=== PATIENT | male | born 1985 | race Caucasian/White ===

== ENCOUNTER 2021-05-31 04:15 | Emergency (ER) | payer OTHER ==
[2021-05-31 04:50] VITALS: BP 130/80; PULSE 67; TEMP 97.6; BMI 30.1
[2021-05-31 05:41] LABS: COCAINE, UR NEGATIVE (NEGATIVE); OPIATES, URI NEGATIVE (NEGATIVE); PHENCYCLIDINE,URINE NEGATIVE (NEGATIVE); URINE BARBITURATES NEGATIVE (NEGATIVE); URINE BENZODIAZEPINES NEGATIVE (NEGATIVE)
[2021-05-31 05:42] LABS: METHADONE, UR NEGATIVE (NEGATIVE)
[2021-05-31 06:02] LABS: URINE AMPHETAMINES NEGATIVE (NEGATIVE)
== END 2021-05-31 05:51 | disposition home or self-care (01) ==
LOC: JER 04:15
DX: F10.20 Alcohol dependence, uncomplicated (principal)
CPT/HCPCS: 80307; 99283-25

== ENCOUNTER 2021-05-31 06:24 | Inpatient (IN) | payer OTHER ==
[2021-05-31 06:48] VITALS: BMI 30.1
[2021-05-31] MEDS ORDERED: MAGNESIUM HYDROX 2400MG/30ML ORAL SUSPENSION 30 ML CUP PO PRN (09:08)
[2021-05-31] MEDS ORDERED: MENTHOL/PHENOL 1 EACH UD MM PRN (09:08)
[2021-05-31] MEDS ORDERED: ONDANSETRON *ODT* 4 MG TABLET SL PRN (09:08)
[2021-05-31] MEDS ORDERED: ACETAMINOPHEN 325 MG TABLET (FP) PO PRN ×2 (09:08)
[2021-05-31] MEDS ORDERED: MAGNESIUM CITRATE 300 ML BOTTLE PO PRN (09:08)
[2021-05-31] MEDS ORDERED: IBUPROFEN 400 MG TABLET (FP) PO PRN (09:08)
[2021-05-31] MEDS ORDERED: BISMUTH SUBSALICYLATE 262 MG/15 ML BTL PO PRN (09:08)
[2021-05-31] MEDS ORDERED: METHOCARBAMOL 500 MG TABLET PO PRN (09:08)
[2021-05-31] MEDS ORDERED: MAG HYDROX/AL HYDROX/SIMETH 30 ML UNIT-DOSE CUP PO PRN (09:08)
[2021-05-31] MEDS: hydrOXYzine PAMOATE 25 MG CAPSULE (FP) PO SCH ×4 (11:13→22:14)
[2021-05-31] MEDS: PRENATAL VITAMINS W/ FOLIC ACID TABLET (FP) PO SCH (11:13)
[2021-05-31 14:38] LABS: HEMATOCRIT 47.8 % (35.4-49); MCHC 33.4 g/dl (32.0-35.9); MEAN CELL VOLUME 86.9 fl (80-96); MEAN PLT VOLUME 8.9 fl (7.5-11.1); PLATELET COUNT 269 10^3/uL (134-434); RDW 13.2 % (11.9-15.9); WHITE BLOOD COUNT 5.2 K/mm3 (4.0-10.0)
[2021-05-31 14:54] LABS: CALCIUM 9.6 mg/dL (8.5-10.1)
[2021-05-31 14:55] LABS: ALBUMIN 4.2 g/dl (3.4-5.0); BLOOD UREA NITROGEN 10.9 mg/dL (7-18)
[2021-05-31 14:58] LABS: CREATININE 0.9 mg/dL (0.55-1.3)
[2021-05-31 15:00] LABS: BILIRUBIN,TOTAL 0.6 mg/dL (0.2-1); TOT PROT 7.9 g/dl (6.4-8.2)
[2021-05-31] MEDS ORDERED: THIAMINE HCL 100 MG TABLET (FP) PO SCH (22:00)
[2021-05-31] MEDS ORDERED: MELATONIN 5 MG TABLETS PO SCH (22:00)
[2021-06-01] MEDS: hydrOXYzine PAMOATE 25 MG CAPSULE (FP) PO SCH ×2 (06:23→10:58)
[2021-06-01 09:03] VITALS: BP 148/95; PULSE 79; TEMP 97.6
[2021-06-01] MEDS: PRENATAL VITAMINS W/ FOLIC ACID TABLET (FP) PO SCH (10:58)
== END 2021-06-01 13:25 | disposition home or self-care (01) | DRG 897 ==
LOC: YASAS 06:24 → Y6N 09:35
PROVIDERS: ADMIT Allergy & Immunology; ATTEND Allergy & Immunology
PROC: HZ2ZZZZ Detoxification Services for Substance Abuse Treatment (ICD-10-PCS; principal; 2021-05-31)
DX: F10.230 Alcohol dependence with withdrawal, uncomplicated (principal); F10.24 Alcohol dependence with alcohol-induced mood disorder; F32.A Depression, unspecified; F39 Unspecified mood [affective] disorder; Z59.01 Sheltered homelessness
CPT/HCPCS: 36415; 80053; 85027; 86780; 93005; 93010; C9803; U0003; U0005

== ENCOUNTER 2021-06-07 03:44 | Emergency (ER) | payer OTHER ==
[2021-06-07 04:01] VITALS: BMI 30.1
[2021-06-07 08:11] VITALS: BP 126/62; PULSE 74; TEMP 98.4
== END 2021-06-07 08:09 | disposition home or self-care (01) ==
LOC: JER 03:44
DX: F10.99 Alcohol use, unspecified with unspecified alcohol-induced disorder (principal); F39 Unspecified mood [affective] disorder
CPT/HCPCS: 99283-25

== ENCOUNTER 2021-06-07 08:53 | Inpatient (IN) | payer OTHER ==
[2021-06-07] MEDS ORDERED: MAG HYDROX/AL HYDROX/SIMETH 30 ML UNIT-DOSE CUP PO PRN (10:29)
[2021-06-07] MEDS ORDERED: P-EPHED 60MG/TRIPROLIDI 2.5MG TABLET PO PRN (10:29)
[2021-06-07] MEDS ORDERED: MAGNESIUM CITRATE 300 ML BOTTLE PO PRN (10:29)
[2021-06-07] MEDS ORDERED: IBUPROFEN 400 MG TABLET (FP) PO PRN (10:29)
[2021-06-07] MEDS ORDERED: MAGNESIUM HYDROX 2400MG/30ML ORAL SUSPENSION 30 ML CUP PO PRN (10:29)
[2021-06-07] MEDS ORDERED: ACETAMINOPHEN 325 MG TABLET (FP) PO PRN (10:29)
[2021-06-07] MEDS ORDERED: guaiFENesin 200 MG/10 ML 10 ML UNIT-DOSE CUPS PO PRN (10:29)
[2021-06-07] MEDS ORDERED: NICOTINE 10 MG CARTRIDGE (INHALER) IH PRN (10:29)
[2021-06-07 10:38] VITALS: BMI 31.0
[2021-06-07] MEDS: PRENATAL VITAMINS W/ FOLIC ACID TABLET (FP) PO SCH (12:26)
[2021-06-07] MEDS: NICOTINE 7 MG/24 HOURS TOPICAL PATCH TD SCH (12:26)
[2021-06-07] MEDS ORDERED: hydrOXYzine PAMOATE 25 MG CAPSULE (FP) PO SCH (14:00)
[2021-06-07] MEDS ORDERED: hydrOXYzine PAMOATE 25 MG CAPSULE (FP) PO PRN (15:56)
[2021-06-07 15:57] LABS: HEMATOCRIT 45.2 % (35.4-49); HEMOGLOBIN 15.1 GM/dL (11.7-16.9); MCH 28.7 pg (25.7-33.7); MCHC 33.5 g/dl (32.0-35.9); MEAN CELL VOLUME 85.6 fl (80-96); MEAN PLT VOLUME 8.7 fl (7.5-11.1); PLATELET COUNT 260 10^3/uL (134-434); RBC 5.28 M/mm3 (4.00-5.60); RDW 13.7 % (11.9-15.9); WHITE BLOOD COUNT 5.4 K/mm3 (4.0-10.0)
[2021-06-07 15:58] LABS: CALCIUM 9.3 mg/dL (8.5-10.1)
[2021-06-07 16:00] LABS: CREATININE 0.9 mg/dL (0.55-1.3)
[2021-06-07 16:02] LABS: BILIRUBIN,TOTAL 0.6 mg/dL (0.2-1); TOT PROT 7.2 g/dl (6.4-8.2)
[2021-06-07 16:05] LABS: BLOOD UREA NITROGEN 14.6 mg/dL (7-18)
[2021-06-07 16:24] LABS: SYPHILIS W/ RPR CONF NON-REACTIVE (NONREACTIVE)
[2021-06-07 17:00] LABS: HIV INTERPRETATION NEGATIVE (NEGATIVE)
[2021-06-07] MEDS: THIAMINE HCL 100 MG TABLET (FP) PO SCH (21:39)
[2021-06-07] MEDS: MELATONIN 5 MG TABLETS PO SCH (21:39)
[2021-06-08 08:51] LABS: URINE APPEARANCE CLEAR; URINE BILIRUBIN NEGATIVE (NEGATIVE); URINE COLOR YELLOW; URINE GLUCOSE (UA) NEGATIVE (NEGATIVE); URINE KETONE NEGATIVE (NEGATIVE); URINE LEUK ESTERASE NEGATIVE (NEGATIVE); URINE NITRITE NEGATIVE (NEGATIVE); URINE PROTEIN NEGATIVE (NEGATIVE); URINE UROBILINOGEN 0.2 mg/dL (0.2-1.0)
[2021-06-08] MEDS: PRENATAL VITAMINS W/ FOLIC ACID TABLET (FP) PO SCH (09:50)
[2021-06-08] MEDS: NICOTINE 7 MG/24 HOURS TOPICAL PATCH TD SCH (09:51)
[2021-06-08] MEDS ORDERED: PROMETHAZINE PO PRN (14:25)
[2021-06-08] MEDS ORDERED: PHENYLEPHRINE PO PRN (14:25)
[2021-06-08] MEDS ORDERED: [UNRECOGNIZED DRUG - OTHER] PO PRN (14:25)
[2021-06-08] MEDS ORDERED: PROMETHAZINE HCL ORAL SYRUP 6.25 MG/5 ML (BULK BOTTLE) PO PRN (16:15)
[2021-06-08] MEDS ORDERED: PT OWN MED DRAWER 7, Y5N ONE (19:14)
[2021-06-08] MEDS: MELATONIN 5 MG TABLETS PO SCH (21:14)
[2021-06-08] MEDS: THIAMINE HCL 100 MG TABLET (FP) PO SCH (21:15)
[2021-06-09] MEDS: PROMETHAZINE HCL ORAL SYRUP 6.25 MG/5 ML (BULK BOTTLE) PO PRN ×3 (01:25→20:28)
[2021-06-09] MEDS: PRENATAL VITAMINS W/ FOLIC ACID TABLET (FP) PO SCH (10:06)
[2021-06-09] MEDS: NICOTINE 7 MG/24 HOURS TOPICAL PATCH TD SCH (10:06)
[2021-06-09] MEDS ORDERED: PT OWN MED DRAWER 7, Y5N ONE ×2 (11:34→20:27)
[2021-06-09] MEDS: MELATONIN 5 MG TABLETS PO SCH (21:54)
[2021-06-09] MEDS: THIAMINE HCL 100 MG TABLET (FP) PO SCH (21:54)
[2021-06-10] MEDS: PRENATAL VITAMINS W/ FOLIC ACID TABLET (FP) PO SCH (09:25)
[2021-06-10] MEDS: NICOTINE 7 MG/24 HOURS TOPICAL PATCH TD SCH (09:26)
[2021-06-10] MEDS: PROMETHAZINE HCL ORAL SYRUP 6.25 MG/5 ML (BULK BOTTLE) PO PRN ×2 (09:26→19:04)
[2021-06-10] MEDS ORDERED: PT OWN MED DRAWER 7, Y5N ONE (19:03)
[2021-06-10] MEDS: THIAMINE HCL 100 MG TABLET (FP) PO SCH (21:39)
[2021-06-10] MEDS: MELATONIN 5 MG TABLETS PO SCH (21:39)
[2021-06-11] MEDS ORDERED: PT OWN MED DRAWER 7, Y5N ONE (04:08)
[2021-06-11] MEDS: PROMETHAZINE HCL ORAL SYRUP 6.25 MG/5 ML (BULK BOTTLE) PO PRN ×2 (04:09→12:58)
[2021-06-11] MEDS: NICOTINE 7 MG/24 HOURS TOPICAL PATCH TD SCH (09:35)
[2021-06-11] MEDS: PRENATAL VITAMINS W/ FOLIC ACID TABLET (FP) PO SCH (09:35)
[2021-06-11] MEDS: PROMETHAZINE HCL 25 MG TABLET PO PRN (21:26)
[2021-06-11] MEDS: THIAMINE HCL 100 MG TABLET (FP) PO SCH (21:26)
[2021-06-11] MEDS: MELATONIN 5 MG TABLETS PO SCH (21:26)
[2021-06-12] MEDS: PRENATAL VITAMINS W/ FOLIC ACID TABLET (FP) PO SCH (09:19)
[2021-06-12] MEDS: NICOTINE 7 MG/24 HOURS TOPICAL PATCH TD SCH (09:19)
[2021-06-12] MEDS ORDERED: PT OWN MED DRAWER 7, Y5N ONE (18:37)
[2021-06-12] MEDS: PROMETHAZINE HCL 25 MG TABLET PO PRN (18:38)
[2021-06-12] MEDS: LOPERAMIDE HCL 2 MG CAPSULE PO PRN (19:29)
[2021-06-12] MEDS: MELATONIN 5 MG TABLETS PO SCH (21:07)
[2021-06-12] MEDS: THIAMINE HCL 100 MG TABLET (FP) PO SCH (21:07)
[2021-06-13] MEDS: NICOTINE 7 MG/24 HOURS TOPICAL PATCH TD SCH (10:15)
[2021-06-13] MEDS: PRENATAL VITAMINS W/ FOLIC ACID TABLET (FP) PO SCH (10:15)
[2021-06-13] MEDS: LOPERAMIDE HCL 2 MG CAPSULE PO PRN (17:09)
[2021-06-14] MEDS: THIAMINE HCL 100 MG TABLET (FP) PO SCH ×2 (00:07→23:18)
[2021-06-14] MEDS: MELATONIN 5 MG TABLETS PO SCH ×2 (00:07→23:18)
[2021-06-14] MEDS: PRENATAL VITAMINS W/ FOLIC ACID TABLET (FP) PO SCH (09:47)
[2021-06-14] MEDS: NICOTINE 7 MG/24 HOURS TOPICAL PATCH TD SCH (09:47)
[2021-06-15] MEDS: PRENATAL VITAMINS W/ FOLIC ACID TABLET (FP) PO SCH (10:10)
[2021-06-15] MEDS: NICOTINE 7 MG/24 HOURS TOPICAL PATCH TD SCH (10:10)
[2021-06-15] MEDS: MELATONIN 5 MG TABLETS PO SCH (21:56)
[2021-06-15] MEDS: THIAMINE HCL 100 MG TABLET (FP) PO SCH (21:56)
[2021-06-16] MEDS: PRENATAL VITAMINS W/ FOLIC ACID TABLET (FP) PO SCH (09:30)
[2021-06-16] MEDS: NICOTINE 7 MG/24 HOURS TOPICAL PATCH TD SCH (09:30)
[2021-06-16] MEDS: THIAMINE HCL 100 MG TABLET (FP) PO SCH (21:28)
[2021-06-16] MEDS: MELATONIN 5 MG TABLETS PO SCH (21:29)
[2021-06-17] MEDS: PRENATAL VITAMINS W/ FOLIC ACID TABLET (FP) PO SCH ×2 (09:48→10:39)
[2021-06-17] MEDS: NICOTINE 7 MG/24 HOURS TOPICAL PATCH TD SCH (09:49)
[2021-06-17] MEDS: MELATONIN 5 MG TABLETS PO SCH (21:41)
[2021-06-17] MEDS: THIAMINE HCL 100 MG TABLET (FP) PO SCH (21:41)
[2021-06-17] MEDS ORDERED: PT OWN MED DRAWER 7, Y5N ONE (21:46)
[2021-06-18 07:07] VITALS: BP 128/86; PULSE 70; TEMP 97.5
[2021-06-18] MEDS: NICOTINE 7 MG/24 HOURS TOPICAL PATCH TD SCH (09:55)
[2021-06-18] MEDS: PRENATAL VITAMINS W/ FOLIC ACID TABLET (FP) PO SCH (09:55)
== END 2021-06-18 10:13 | disposition home or self-care (01) | DRG 895 ==
LOC: YASAS 08:53 → Y3E 11:11
PROVIDERS: ADMIT Allergy & Immunology; ATTEND Allergy & Immunology
PROC: HZ42ZZZ Group Counseling for Substance Abuse Treatment, Cognitive-Behavioral (ICD-10-PCS; principal; 2021-06-07)
DX: F11.20 Opioid dependence, uncomplicated (principal); F14.20 Cocaine dependence, uncomplicated; F19.280 Other psychoactive substance dependence with psychoactive substance-induced anxiety disorder; F10.10 Alcohol abuse, uncomplicated; F17.210 Nicotine dependence, cigarettes, uncomplicated; F43.10 Post-traumatic stress disorder, unspecified; F19.24 Other psychoactive substance dependence with psychoactive substance-induced mood disorder; F32.A Depression, unspecified; F39 Unspecified mood [affective] disorder; I10 Essential (primary) hypertension; R19.7 Diarrhea, unspecified; Z56.0 Unemployment, unspecified; Z59.01 Sheltered homelessness
CPT/HCPCS: 36415; 80053; 81003; 85027; 86780; 86803; 87177; 87209; 87389; 87811; C9803; U0003; U0005